=== PATIENT | male | born 1955 | race Hispanic/Latino ===

== ENCOUNTER 2020-03-15 12:08 | Emergency (ER) | payer OTHER, SELFPAY ==
[2020-03-15] MEDS ORDERED: ACETAMINOPHEN 325 MG TAB ONE (12:37)
[2020-03-15] MEDS ORDERED: AZITHROMYCIN 500MG+NS 250ML 250 ML IV ONE (12:37)
[2020-03-15] MEDS ORDERED: CEFTRIAXONE 1G VIAL ONE (12:37)
[2020-03-15 13:07] LABS: ABG BASE EXCESS -0.7 mmol/L (-2.0-3.0); ABG HCO3 22.2 mmol/L (21.0-28.0); ABG OXYGEN SATURATION 96.8 % (95.0-99.0); ABG PCO2 32 mmHg (35-48)
[2020-03-15 13:10] LABS: BASOPHILS % (AUTO) 0.5 % (0.0-5.0); EOSINOPHILS % (AUTO) 3.4 % (0.0-8.0); HEMATOCRIT 35.8 % (42-54); LYMPHOCYTES % (AUTO) 17.4 % (21.0-51.0); MEAN CORPUSCULAR HEMOGLOBIN 34.7 pg (27.0-33.0); MEAN CORPUSCULAR HGB CONC 36.9 g/dL (32.0-36.0); MEAN CORPUSCULAR VOLUME 94.2 fL (79-99); NEUTROPHILS % (AUTO) 63.2 % (40.0-77.0); PLATELET COUNT (AUTO) 287 K/uL (130-400); RED CELL DISTRIBUTION WIDTH 11.7 % (11.0-15.5); WHITE BLOOD COUNT (AUTO) 4.1 K/uL (4.8-10.8)
[2020-03-15 13:11] LABS: APPEARANCE,URINE Clear (CLEAR); BILIRUBIN,URINE Negative (NEGATIVE); COLOR,URINE Yellow (YELLOW); GLUCOSE, URINE (UA) 500 mg/dL (NEGATIVE); KETONES,URINE Negative (NEGATIVE); LEUKOCYTE ESTERASE ,URINE Negative (NEGATIVE); NITRATE,URINE Negative (NEGATIVE); OCCULT BLOOD,URINE Negative (NEGATIVE); PH,URINE 7.5 (5.0-8.0); PROTEIN,URINE POS 2+ mg/dL (NEGATIVE)
[2020-03-15 13:37] LABS: RBC,URINE 0-1 /HPF (0-1)
[2020-03-15 13:38] LABS: BACTERIA,URINE Rare /HPF (None Seen); SQUAMOUS EPITHELIAL CELL,UR 0-2 /HPF (0-2); WBC,URINE 0-1 /HPF (0-1)
[2020-03-15 13:43] LABS: ALBUMIN 4.5 g/dL (3.5-5.0); BILIRUBIN,TOTAL 0.6 mg/dL (0.2-1.0); CREATININE 1.3 mg/dL (0.5-1.5); POTASSIUM 4.5 mmol/L (3.5-5.1); TOTAL PROTEIN, SERUM 9.2 g/dL (6.0-8.3)
[2020-03-15 14:07] LABS: B-TYPE NATRIURETIC PEPTIDE 41 pg/mL (0-100)
[2020-09-16] MEDS ORDERED: LISI5TAB21 PO (06:45)
== END 2020-03-15 15:23 | disposition home or self-care (01) ==
LOC: EDH 12:08
DX: U07.1 COVID-19 (principal); E11.9 Type 2 diabetes mellitus without complications; I10 Essential (primary) hypertension; Z87.891 Personal history of nicotine dependence
CPT/HCPCS: 36415; 36600; 71045; 80053; 81001; 82550; 82803; 83605; 83880; 84145; 84484; 85025; 87040 ×2; 87426; 93005; 96365; 96368; 99285; J0456; J0696

== ENCOUNTER 2020-09-15 15:56 | Inpatient (IN) | payer OTHER ==
[~2020-09-15] VITALS: Ht 170.2 cm; Wt 67.1 kg
[2020-09-15 15:58] VITALS: BP 168/82
[2020-09-15 17:22] LABS: BASOPHILS % (AUTO) 0.7 % (0.0-5.0); EOSINOPHILS % (AUTO) 2.1 % (0.0-8.0); HEMATOCRIT 32.5 % (42-54); LYMPHOCYTES % (AUTO) 27.4 % (21.0-51.0); MEAN CORPUSCULAR VOLUME 97.3 fL (79-99); MONOCYTES % (AUTO) 13.5 % (3.0-13.0); PLATELET COUNT (AUTO) 367 K/uL (130-400); RED BLOOD CELL COUNT(AUTO) 3.34 MIL/uL (4.50-6.20); RED CELL DISTRIBUTION WIDTH 11.6 % (11.0-15.5); WHITE BLOOD COUNT (AUTO) 6.8 K/uL (4.8-10.8)
[2020-09-15 17:43] LABS: ALANINE AMINOTRANSFERASE 55 U/L (12-78); ALBUMIN 4.7 g/dL (3.5-5.0); ASPARTATE AMINOTRANSFERASE 42 U/L (10-37); BILIRUBIN,TOTAL 0.8 mg/dL (0.2-1.0); CARBON DIOXIDE 27 mmol/L (21-32); CREATINE KINASE, TOTAL 76 U/L (21-232); CREATININE 1.4 mg/dL (0.5-1.5); GLOMERULAR FILTR. RATE CALC 54 mL/min (>60); GLUCOSE,RANDOM 116 mg/dL (70-105); MYOGLOBIN 41 ng/mL (10-92); POTASSIUM 4.1 mmol/L (3.5-5.1); SODIUM SERUM 125 mmol/L (136-145); TOTAL PROTEIN, SERUM 8.6 g/dL (6.0-8.3); TROPONIN I < 0.04 ng/mL (0.00-0.06); UREA NITROGEN, BLOOD 13 mg/dL (7-18)
[2020-09-15 17:45] LABS: CHLORIDE 87 mmol/L (101-111)
[2020-09-15] MEDS ORDERED: ONDANSETRON 4MG INJ IVP ONE (18:00)
[2020-09-15] MEDS ORDERED: 0.9%NACL 1000ML 1,000 ML IV ONE (18:00)
[2020-09-15 19:54] VITALS: BP 193/94
[2020-09-15 20:40] LABS: APPEARANCE,URINE Clear (CLEAR); BILIRUBIN,URINE Negative (NEGATIVE); COLOR,URINE Yellow (YELLOW); GLUCOSE, URINE (UA) Negative (NEGATIVE); KETONES,URINE Negative (NEGATIVE); LEUKOCYTE ESTERASE ,URINE Negative (NEGATIVE); NITRATE,URINE Negative (NEGATIVE); OCCULT BLOOD,URINE Negative (NEGATIVE); PROTEIN,URINE Trace mg/dL (NEGATIVE)
[2020-09-15 20:50] LABS: BACTERIA,URINE None Seen /HPF (None Seen); MUCUS,URINE Few LPF (None Seen); RBC,URINE 0-1 /HPF (0-1); SQUAMOUS EPITHELIAL CELL,UR 0-2 /HPF (0-2); WBC,URINE 0-1 /HPF (0-1)
[2020-09-15 21:06] LABS: CRP QUANTITATIVE 2.1 mg/L (0.00-9.0)
[2020-09-15] MEDS ORDERED: ONDANSETRON 4MG INJ IV PRN (22:30)
[2020-09-15] MEDS ORDERED: ACETAMINOPHEN 325 MG TAB PO PRN ×2 (22:30)
[2020-09-15] MEDS ORDERED: 0.9%NACL 1000ML 1,000 ML IV SCH (22:30)
[2020-09-15 23:54] VITALS: BP 156/86
[2020-09-16] VITALS (9 sets, daily range): BP systolic 136–183; BP diastolic 77–106
[2020-09-16] MEDS ORDERED: HYDRALAZINE HCL 10 MG TABLET ONE (02:42)
[2020-09-16] MEDS ORDERED: HYDRALAZINE HCL 10 MG TABLET PO SCH (03:00)
[2020-09-16] MEDS ORDERED: HYDRALAZINE 20MG/ML VIAL IV SCH (06:00)
[2020-09-16] MEDS ORDERED: HYDRALAZINE 20MG/ML VIAL ONE (06:11)
[2020-09-16 06:18] LABS: HEMATOCRIT 31.5 % (42-54); MEAN CORPUSCULAR HEMOGLOBIN 35.2 pg (27.0-33.0); MEAN CORPUSCULAR HGB CONC 35.9 g/dL (32.0-36.0); MEAN CORPUSCULAR VOLUME 98.1 fL (79-99); RED BLOOD CELL COUNT(AUTO) 3.21 MIL/uL (4.50-6.20); RED CELL DISTRIBUTION WIDTH 11.6 % (11.0-15.5); WHITE BLOOD COUNT (AUTO) 4.7 K/uL (4.8-10.8)
[2020-09-16 06:36] LABS: ALBUMIN 4.1 g/dL (3.5-5.0); BILIRUBIN,TOTAL 0.9 mg/dL (0.2-1.0); CREATININE 1.2 mg/dL (0.5-1.5); POTASSIUM 3.6 mmol/L (3.5-5.1); TOTAL PROTEIN, SERUM 7.6 g/dL (6.0-8.3)
[2020-09-16] MEDS ORDERED: THIA100T75 PO (06:45)
[2020-09-16] MEDS ORDERED: METF-445 PO (06:45)
[2020-09-16] MEDS ORDERED: AEC81 PO (06:45)
[2020-09-16] MEDS ORDERED: CALC-1009 PO (06:45)
[2020-09-16] MEDS ORDERED: FOLI0.8T3 PO (06:45)
[2020-09-16] MEDS ORDERED: LISI-809 PO (06:45)
[2020-09-16] MEDS ORDERED: FAMOTIDINE 20MG VIAL IV SCH (09:00)
== END 2020-09-16 23:16 | disposition home or self-care (01) | DRG 641 ==
LOC: EDH 15:56 → EDHIP 15:57
PROVIDERS: ADMIT Hospitalist; ATTEND Hospitalist
DX: E87.1 Hypo-osmolality and hyponatremia (principal); E11.9 Type 2 diabetes mellitus without complications; I10 Essential (primary) hypertension; E78.00 Pure hypercholesterolemia, unspecified; E78.5 Hyperlipidemia, unspecified; E86.0 Dehydration; F10.20 Alcohol dependence, uncomplicated; G31.2 Degeneration of nervous system due to alcohol; Z20.822 Contact with and (suspected) exposure to COVID-19
CPT/HCPCS: 36415; 70450; 71045; 80053; 81001; 82140; 82550; 83874; 83880; 84484; 85025; 85027; 86140; 87635; 87804; 87880; 93005; C9803; G0378; J0360; J2405; J3490; J7030

== ENCOUNTER 2021-07-14 14:53 | Inpatient (IN) | payer MEDICARE ==
[~2021-07-14] VITALS: Ht 170.2 cm; Wt 68.7 kg
[~2021-07-14 14:53] MED LIST: AEC81 PO; CALC-1009 PO; FOLI0.8T3 PO; LISI5TAB21 PO; METF-445 PO; THIA100T75 PO
[2021-07-14 15:24] LABS: BASOPHILS % (AUTO) 0.6 % (0.0-5.0); EOSINOPHILS % (AUTO) 0.6 % (0.0-8.0); HEMATOCRIT 26.5 % (42-54); LYMPHOCYTES % (AUTO) 18.4 % (21.0-51.0); MEAN CORPUSCULAR HEMOGLOBIN 36.2 pg (27.0-33.0); MEAN CORPUSCULAR HGB CONC 38.1 g/dL (32.0-36.0); MONOCYTES % (AUTO) 9.9 % (3.0-13.0); NEUTROPHILS % (AUTO) 69.9 % (40.0-77.0); PLATELET COUNT (AUTO) 210 K/uL (130-400); RED BLOOD CELL COUNT(AUTO) 2.79 MIL/uL (4.50-6.20); RED CELL DISTRIBUTION WIDTH 11.5 % (11.0-15.5); WHITE BLOOD COUNT (AUTO) 5.1 K/uL (4.8-10.8)
[2021-07-14 15:43] LABS: ALBUMIN 3.9 g/dL (3.5-5.0); BILIRUBIN,TOTAL 0.5 mg/dL (0.2-1.0); CREATININE 0.8 mg/dL (0.5-1.5); POTASSIUM 3.7 mmol/L (3.5-5.1); TOTAL PROTEIN, SERUM 6.9 g/dL (6.0-8.3)
[2021-07-14 16:07] LABS: APPEARANCE,URINE Clear (CLEAR); BILIRUBIN,URINE Negative (NEGATIVE); COLOR,URINE Yellow (YELLOW); GLUCOSE, URINE (UA) Negative (NEGATIVE); KETONES,URINE Negative (NEGATIVE); LEUKOCYTE ESTERASE ,URINE Negative (NEGATIVE); NITRATE,URINE Negative (NEGATIVE); OCCULT BLOOD,URINE Negative (NEGATIVE); PH,URINE 5.5 (5.0-8.0); PROTEIN,URINE POS 1+ mg/dL (NEGATIVE); UROBILINOGEN,URINE 0.2 mg/dL (0.2-1.0)
[2021-07-14 16:14] LABS: AMPHET/METH SCREEN,URINE NEGATIVE (NEGATIVE); BARBITURATE SCREEN, URINE NEGATIVE (NEGATIVE); BENZODIAZEPINES SCREEN,URINE NEGATIVE (NEGATIVE); CANNABINOID SCREEN,URINE NEGATIVE (NEGATIVE); COCAINE SCREEN,URINE NEGATIVE (NEGATIVE); OPIATE SCREEN,URINE NEGATIVE (NEGATIVE); PHENCYCLIDINE SCREEN,URINE NEGATIVE (NEGATIVE)
[2021-07-14 16:32] LABS: BACTERIA,URINE Rare /HPF (None Seen); RBC,URINE 0-1 /HPF (0-1); WBC,URINE 0-1 /HPF (0-1)
[2021-07-14 16:33] LABS: SQUAMOUS EPITHELIAL CELL,UR Rare /HPF (0-2)
[2021-07-14] MEDS ORDERED: THIAMINE HCL 100 MG, FOLIC ACID 1 MG, M.V.I. IV [ADULT] 10 ML in 0.9%NACL 1000ML 1,000 ML IV SCH (18:00)
[2021-07-14] MEDS ORDERED: LORAZEPAM 2 MG/ML 1 ML VIAL IVP PRN (18:00)
[2021-07-14] MEDS ORDERED: ACETAMINOPHEN 325 MG TAB PO PRN ×2 (18:00)
[2021-07-14] MEDS ORDERED: PHARMACY COMMUNICATION MISC PRN (18:00)
[2021-07-14] MEDS ORDERED: CHLORDIAZEPOXIDE HCL 25 MG CAP PO PRN (18:00)
[2021-07-14 18:05] LABS: % IRON SATURATION 51.1 % (30-44)
[2021-07-14 18:14] LABS: MAGNESIUM 1.2 mg/dL (1.80-2.40); PHOSPHORUS 2.6 mg/dL (2.5-4.9); THYROID STIMULATING HORMONE 1.6 uIU/mL (0.36-3.74)
[2021-07-14] MEDS: FAMOTIDINE 20MG VIAL IV SCH (19:13)
[2021-07-14 20:48] LABS: CREATININE 0.8 mg/dL (0.5-1.5); MAGNESIUM 1.2 mg/dL (1.80-2.40); PHOSPHORUS 2.7 mg/dL (2.5-4.9); POTASSIUM 4.1 mmol/L (3.5-5.1)
[2021-07-14] MEDS ORDERED: MAGNESIUM 2GM PREMIX 50ML 50 ML IV SCH ×2 (21:00→21:30)
[2021-07-14] MEDS ORDERED: LORAZEPAM 2 MG/ML 1 ML VIAL IVP ONE (21:00)
[2021-07-14 23:55] VITALS: BP 152/82
[2021-07-15] VITALS (17 sets, daily range): BP systolic 115–183; BP diastolic 62–106
[2021-07-15 04:01] LABS: HEMATOCRIT 32.7 % (42-54); MEAN CORPUSCULAR HEMOGLOBIN 36.2 pg (27.0-33.0); MEAN CORPUSCULAR HGB CONC 38.2 g/dL (32.0-36.0); MEAN CORPUSCULAR VOLUME 94.8 fL (79-99); RED BLOOD CELL COUNT(AUTO) 3.45 MIL/uL (4.50-6.20); RED CELL DISTRIBUTION WIDTH 11.9 % (11.0-15.5); WHITE BLOOD COUNT (AUTO) 9.2 K/uL (4.8-10.8)
[2021-07-15 04:14] LABS: INR 0.97 (0.85-1.15); PROTHROMBIN TIME 10.6 SEC (9.6-11.6)
[2021-07-15 04:16] LABS: PARTIAL THROMBOPLASTIN TIME 26.2 SEC (26.3-35.5)
[2021-07-15 04:41] LABS: HEMOGLOBIN A1C 5.8 % (4.0-6.0)
[2021-07-15 04:46] LABS: CARBON DIOXIDE 23 mmol/L (21-32); CHLORIDE 94 mmol/L (101-111); CREATININE 0.8 mg/dL (0.5-1.5); GLOMERULAR FILTR. RATE CALC 103 mL/min (>60); GLUCOSE,RANDOM 107 mg/dL (70-105); PHOSPHORUS 2.9 mg/dL (2.5-4.9); POTASSIUM 3.7 mmol/L (3.5-5.1); SODIUM SERUM 131 mmol/L (136-145); UREA NITROGEN, BLOOD 7 mg/dL (7-18)
[2021-07-15] MEDS ORDERED: 0.9%NACL 1000ML 1,000 ML IV ONE (07:09)
[2021-07-15] MEDS ORDERED: LISINOPRIL 10 MG TABLET ONE (07:58)
[2021-07-15] MEDS: FAMOTIDINE 20MG VIAL IV SCH (08:01)
[2021-07-15] MEDS ORDERED: ENOXAPARIN SODIUM 30 MG/0.3 ML SQ SCH (09:00)
[2021-07-15] MEDS ORDERED: LISINOPRIL 10 MG TABLET PO SCH (09:00)
[2021-07-15] MEDS ORDERED: NEUTRA-PHOS PACKET 1 EACH PO SCH (09:00)
[2021-07-15] MEDS ORDERED: M.V.I. IV [ADULT] 10 ML, FOLIC ACID 1 MG, THIAMINE HCL 100 MG in 0.9%NACL 1000ML 1,000 ML IV NR (15:05)
== END 2021-07-15 14:41 | disposition home or self-care (01) | DRG 640 ==
LOC: EDH 14:53 → EDHIP 17:32 → 2BH 23:37
PROVIDERS: ADMIT Internal Medicine; ATTEND Internal Medicine
DX: E87.1 Hypo-osmolality and hyponatremia (principal); G93.41 Metabolic encephalopathy; E51.9 Thiamine deficiency, unspecified; D50.9 Iron deficiency anemia, unspecified; D72.810 Lymphocytopenia; E87.8 Other disorders of electrolyte and fluid balance, not elsewhere classified; E83.42 Hypomagnesemia; I10 Essential (primary) hypertension; F10.129 Alcohol abuse with intoxication, unspecified; E11.9 Type 2 diabetes mellitus without complications; Y90.9 Presence of alcohol in blood, level not specified; E78.5 Hyperlipidemia, unspecified; D64.9 Anemia, unspecified
CPT/HCPCS: 36415; 80048; 80053; 80305; 81001; 82140; 82607; 82728; 82746; 83036; 83540; 83550; 83735; 83930; 83935; 84100; 84145; 84300; 84443; 85025; 85027; 85610; 85730; 87088; 93005; 97039; 99291; G0378; J1650; J2060; J3411; J3475; J3490; J7030

== ENCOUNTER → 2022-10-17 | Outpatient (CLI) | payer OTHER, MEDICARE ==
[2022-10-17 15:41] LABS: BASOPHILS # (AUTO) 0.04 K/uL (0.00-0.20); BASOPHILS % (AUTO) 0.5 % (0.0-5.0); EOSINOPHILS # (AUTO) 0.13 K/uL (0.00-0.70); EOSINOPHILS % (AUTO) 1.8 % (0.0-8.0); HEMATOCRIT 37.4 % (42-54); IMMATURE GRANULOCYTE ABSOLUTE 0.03 K/uL (0-1); LYMPHOCYTES # (AUTO) 1.8 K/uL (1.0-4.8); LYMPHOCYTES % (AUTO) 24.5 % (21.0-51.0); MEAN CORPUSCULAR HEMOGLOBIN 33.2 pg (27.0-33.0); MEAN CORPUSCULAR HGB CONC 35.6 g/dL (32.0-36.0); MEAN CORPUSCULAR VOLUME 93.3 fL (79-99); MONOCYTES # (AUTO) 0.9 K/uL (0.1-1.0); MONOCYTES % (AUTO) 11.8 % (3.0-13.0); NEUTROPHILS # (AUTO) 4.5 K/uL (1.8-7.7); PLATELET COUNT (AUTO) 319 K/uL (130-400); RED BLOOD CELL COUNT(AUTO) 4.01 MIL/uL (4.50-6.20); RED CELL DISTRIBUTION WIDTH 11.9 % (11.0-15.5); WHITE BLOOD COUNT (AUTO) 7.4 K/uL (4.8-10.8)
[2022-10-17 15:51] LABS: HEMOGLOBIN A1C 10.1 % (4.0-6.0)
[2022-10-17 16:03] LABS: BILIRUBIN,TOTAL 0.5 mg/dL (0.2-1.0); CREATININE 1.8 mg/dL (0.5-1.5); POTASSIUM 4.6 mmol/L (3.5-5.1); TOTAL PROTEIN, SERUM 7.6 g/dL (6.0-8.3)
== END | disposition home or self-care (01) ==
LOC: LAB 10:00
PROVIDERS: ATTEND Family Medicine
DX: I10 Essential (primary) hypertension (principal); E11.9 Type 2 diabetes mellitus without complications; E78.5 Hyperlipidemia, unspecified
CPT/HCPCS: 36415; 80053; 80061; 83036; 84443; 85025